=== PATIENT | male | born 1975 | race American Indian/Alaskan Native ===

== ENCOUNTER 2020-06-01 09:47 | Outpatient (REF) | payer OTHER, SELFPAY ==
[2020-06-01 10:40] LABS: MANUAL DIFF FLAG NO
[2020-06-01 10:56] LABS: Basophils Percent Auto 0.6 % (0-2); Eosinophils Absolute Auto 0.2 X10*3/uL (0.0-0.4); Eosinophils Percent Auto 3.8 % (0-4); Imm Gran Abs Auto 0.01 X10*3/uL (0.00-0.03); Imm Gran Pct Auto 0.2 % (0.0-0.4); Lymphocytes Absolute Auto 3.4 X10*3/uL (1.2-4.9); Lymphocytes Percent Auto 54.1 % (20-40); Mean Corpuscular HGB Conc 33.3 g/dl (31.0-36.0); Mean Corpuscular Hemoglobin 30.3 pg (27.0-33.0); Mean Corpuscular Volume 90.9 fL (80-98); Mean Platelet Volume 10.4 fL (9.4-12.4); Monocytes Absolute Auto 0.5 X10*3/uL (0.1-1.2); Monocytes Percent Auto 7.4 % (2-11); Neutrophils Absolute Auto 2.2 X10*3/uL (2.0-8.3); Neutrophils Percent Auto 33.9 % (45-73); Platelet Count 287 X10*3/uL (160-400); Red Blood Count 4.95 X10*6/uL (4.60-5.80); Red Cell Distribution Width 14.6 % (11.0-16.0); White Blood Count 6.4 X10*3/uL (4.8-10.8)
[2020-06-01 11:16] LABS: Alanine Aminotransferase 26 U/L (0-40); Albumin Level 4.5 g/dL (3.5-5.0); Alkaline Phosphatase 88 U/L (39-117); Anion Gap 12 (12-20); Aspartate Amino Transferase 26 U/L (5-37); Bilirubin Total 0.5 mg/dL (0.0-1.0); Blood Urea Nitrogen 17 mg/dL (9-16); Calcium 9.5 mg/dL (8.4-10.2); Carbon Dioxide 28 mmol/L (22-29); Chloride 105 mmol/L (96-108); Cholesterol 267 mg/dL; Estimated Glomerular Filt Rate > 60; Glucose Fasting 97 mg/dL (60-99); HDL Cholesterol 42 mg/dL; LDL Cholesterol Calculated 200 mg/dl; Potassium 4.9 mmol/l (3.3-5.1); Sodium 140 mmol/L (135-145); Total Protein 7.5 g/dL (6.5-8.0); Triglycerides 126 mg/dL
[2020-06-01 11:24] LABS: Prostate Specific Antigen 0.31 ng/mL (<0.05-4.0); Vitamin D 25-OH Total 11.5 ng/mL (>30)
== END 2020-06-01 09:48 | disposition home or self-care (01) ==
LOC: HO.LAB 09:47
PROVIDERS: PCP Internal Medicine Medical Oncology; Visit Provider Internal Medicine Medical Oncology
DX: E66.3 Overweight (principal); K40.90 Unilateral inguinal hernia, without obstruction or gangrene, not specified as recurrent
CPT/HCPCS: 36415; 80053; 80061; 82306; 84153; 85025

== ENCOUNTER → 2021-10-16 09:21 | Outpatient (BNVA) | payer OTHER, SELFPAY | PROVIDERS: PCP Internal Medicine Medical Oncology; Visit Provider Physician Assistant Medical | DX: S30.0XXA Contusion of lower back and pelvis, initial encounter (principal); V89.9XXA Person injured in unspecified vehicle accident, initial encounter | CPT/HCPCS: 99202 ==

== ENCOUNTER → 2021-11-05 11:19 | Outpatient (BNVA) | payer OTHER, SELFPAY | PROVIDERS: PCP Internal Medicine Medical Oncology; Visit Provider Physician Assistant | DX: S80.02XA Contusion of left knee, initial encounter (principal); W01.198A Fall on same level from slipping, tripping and stumbling with subsequent striking against other object, initial encounter | CPT/HCPCS: 73564; 99203 ==

== ENCOUNTER → 2021-11-10 13:23 | Outpatient (BNVA) | payer OTHER, SELFPAY | PROVIDERS: PCP Internal Medicine Medical Oncology; Visit Provider Physician Assistant Medical | DX: S80.02XA Contusion of left knee, initial encounter (principal); W22.8XXA Striking against or struck by other objects, initial encounter | CPT/HCPCS: 99213 ==

== ENCOUNTER → 2021-11-18 09:10 | Outpatient (BNVA) | payer OTHER, SELFPAY | PROVIDERS: PCP Internal Medicine Medical Oncology; Visit Provider Physician Assistant Medical | DX: S80.02XA Contusion of left knee, initial encounter (principal); W22.8XXA Striking against or struck by other objects, initial encounter | CPT/HCPCS: 99213 ==

== ENCOUNTER 2024-01-04 12:49 | Observation (INO) | payer BC, SELFPAY ==
--- NOTE | 2024-01-04 13:31 | ECG_ITS ---
Test Reason : CHEST PAIN Blood Pressure : / mmHG Vent. Rate : 044 BPM Atrial Rate : 044 BPM P-R Int : 148 ms QRS Dur : 084 ms QT Int : 428 ms P-R-T Axes : 039 023 -09 degrees QTc Int : 365 ms Marked sinus bradycardia Abnormal ECG No previous ECGs available Referred By: Generic ED Physician Electronically Signed By:Jaspal Sosa
[2024-01-04 13:38] VITALS: BP 141/60; PULSE 42; RESP 18; TEMP 36.4; O2SAT 98; BMI 30.3
--- NOTE | 2024-01-04 13:39 | ED_ITS ---
HPI - General Adult General Chief complaint: General Medical Stated complaint: Low heart rate seen PCP wednesday Time Seen by Provider: 01/04/24 20:07 Source: patient Mode of arrival: ambulatory Limitations: no limitations History of Present Illness HPI narrative: Patient comes to the emergency room complaining of low heart rate. According to the patient, yesterday he went to see his primary care physician for his annual physical. It was noted that his heart rate was in the 40s. Patient states that EKG was done and it showed sinus bradycardia. According to the patient, his primary care physician wants to refer him to Cardiology, but the next appointment will be available in months, therefore patient was recommended to come to the emergency room. Patient states that he has no chest pain or shortness of breath. Patient states that usually he has not dizzy. However, for the last couple of days when patient wakes up in the middle of the night to go to the bathroom, when he starts walking towards the bathroom he was feeling lightheaded, so far 2 days in a row this has happened. Patient states that after using the bathroom and goes back to bed, he feels completely back to baseline. At this time, patient is asymptomatic. Patient states that he has not much of an appetite, has not worked out in over 7 years. Patient states that his work is not significantly physical either. Patient states that throughout the day, patient has no symptoms at all even with exertion. Related Data Allergies Allergy/AdvReac Type Severity Reaction Status Date / Time No Known Allergies Allergy Verified 01/04/24 13:42 Review of Systems 2 Review of Systems: Constitutional : No Weight loss, No Fever, No Chills, No Night Sweats, No Fatigue, No Malaise ENT/Mouth : No Hearing loss, No Ear Pain, No Nasal Congestion, No Sinus Pain, No Hoarseness, No sore throat, No Rhinorrhea, No Swallowing Difficulty Eyes: No Eye Pain, No Swelling, No Redness, No Foreign Body, No Discharge, No Vision Changes Cardiovascular : No Chest Pain, No SOB, No Dyspnea on Exertion, No Orthopnea, No Edema, No Palpitations, complaining of 2 days of lightheadedness which resolved Respiratory : No Cough, No Sputum, No Wheezing, No Smoke Exposure, No Dyspnea Gastrointestinal : No Nausea, No Vomiting, No Diarrhea, No Constipation, No abdominal Pain, No Hematochezia, No Melena Genitourinary : no irregular bleeding, No Dysuria, No Urinary Frequency, No Hematuria, No Urinary Incontinence, No Urgency, No Flank Pain, No Urinary Flow Changes, No Hesitancy Musculoskeletal : No joint pain, No Myalgias, No Joint Swelling Skin : No Skin Lesions, No rash Neuro : No Weakness, No Numbness, No Paresthesias, No Loss of Consciousness, No Dizziness, No Headache Psych : No Anxiety/Panic, No Depression, No SI/HI/AH/VH, No Social Issues, Heme/Lymph: No Bruising, No Bleeding,No Lymphadenopathy Endocrine : No Polyuria, No Polydipsia, No Temperature Intolerance [facility] Social History Social History Alcohol intake: current Alcohol intake frequency: holidays/special occasions only Smoked in Last 30 Days: No Use of substances other than those prescribed or required for medical reasons: Yes Substance Use Type: Marijuana Substance Use Frequency: Occasionally Advance Directives: No Advance Directives Information Provided: No Do you have a plan to hurt others: No Plan Physical Exam ED Vital Signs: Vital Signs - 24 hr 01/04/24 13:38 01/04/24 19:44 01/04/24 20:21 Temperature 97.6 F 97.7 F Pulse Rate 42 L 35 L 43 L Respiratory Rate 18 16 Blood Pressure 141/60 H 139/73 128/77 Pulse Oximetry 98 99 Oxygen Delivery Method Room Air Room Air 01/04/24 20:22 01/04/24 20:23 Temperature Pulse Rate 39 L 40 L Respiratory Rate Blood Pressure 138/85 145/81 H Pulse Oximetry Oxygen Delivery Method BMI result Body Mass Index 30.3 Const Other: Appearance: Alert. Oriented X3. No acute distress. Eyes: Pupils equal, round and reactive to light. ENT: Pharynx normal. Neck: Normal inspection. Neck supple. No lymph nodes noted. No crepitus CVS: Bradycardic heart rate in the low 40s, occasionally down to 35. Pulses normal. Normal S1 and S2 Respiratory: No respiratory distress. Breath sounds normal. No Wheezing. No rales Abdomen: Soft and nontender. No rigidity. No distention. Skin: Skin warm and dry. Normal skin color. Normal skin turgor. Extremities: No lower extremity edema. No Lacerations. No Rash Neuro: Oriented X 3. No motor deficit. No sensory deficit. Moving all extremities. No slurred speech. CN 2 through 12 grossly intact Psych: calm, cooperative, normal affect Course Course Course Narrative: This is a Rapid Medical Examination (RME) performed by Roberto Luke PA-C in triage. Full HPI, ROS, assessment and treatment plan per primary provider in the Main ED. 48 yo male presenting for evaluation of low heart rate, which was first noted at recent annual physical appointment. Endorses associated dizziness and lightheadedness upon waking up in the morning, but not throughout the day. This has happened 2x for the past 2 days. No ongoing symptoms. Denies N/V/D, chest pain, SOB, or diaphoresis. Plan: EKG, labs Medical Decision Making Medical Decision Making [facility] Narrative: -my interpretation of EKG: Sinus bradycardia, heart rate 44, no ST segment depression or elevation, nonspecific T-wave inversion in lead 3, QTC 365 -my interpretation of labs, hematology, chemistry, troponin and TSH normal. -orthostatic blood pressure vitals normal -heart rate increased from the low 40s to the mid 50s walking. Blood pressure in the 140s. Patient denied dizziness, just mild shortness of breath. -I discussed the patient with Dr. Sosa, we will admit the patient, patient agreeable with plan. -I discussed the patient with Dr. Gillespie, patient being admitted by the medicine team Differential Diagnosis Differential Diagnoses: The differential diagnosis associated with the presentation includes (Heart block, sinus bradycardia) Admission/Observation Consideration of admission/observation: Escalation of care including admission/observation considered (Given patient's vitals, admission/observation was considered.) Consult Healthcare Provider Management of the patient was discussed with: Hospitalist and Medicaid Nurse Lab Data [facility] Lab Attestation statement: I reviewed the patient's lab results. 01/04/24 13:55 01/04/24 13:55 Labs: Lab Results 01/04/24 Range/Units 13:55 WBC 5.9 (4.8-10.8) X10*3/uL RBC 4.69 (4.60-5.80) X10*6/uL Hgb 14.1 (14.0-18.0) g/dl Hct 41.4 L (42.0-52.0) % MCV 88.3 (80.0-98.0) fL MCH 30.1 (27.0-33.0) pg MCHC 34.1 (31.0-36.0) g/dl RDW 14.3 (11.0-16.0) % Plt Count 291 (160-400) X10*3/uL MPV 9.5 (9.4-12.4) fL Immature Gran % (Auto) 0.3 (0.0-0.4) % Neut % (Auto) 35.3 L (45-73) % Lymph % (Auto) 53.3 H (20-40) % [place] % (Auto) 6.6 (2-11) % Eos % (Auto) 3.7 (0-4) % Baso % (Auto) 0.8 (0-2) % Lymph # (Auto) 3.1 (1.2-4.9) X10*3/uL [place] # (Auto) 0.4 (0.1-1.2) X10*3/uL Eos # (Auto) 0.2 (0.0-0.4) X10*3/uL Baso # (Auto) 0.1 (0.0-0.2) X10*3/uL Abs Immat Gran (auto) 0.02 (0.00-0.03) X10*3/uL Absolute Neuts (auto) 2.1 (2.0-8.3) x10*3/uL Absolute Nucleated RBC 0.000 (0.0-0.012) X10*3/uL Nucleated RBC % (auto) 0.0 (0.0-0.2) /100WBC Sodium 142 (135-145) mmol/L Potassium 4.0 (3.3-5.1) mmol/L Chloride 110 H (96-108) mmol/L Carbon Dioxide 22 (22-29) mmol/L Anion Gap 14 (12-20) BUN 21 H (9-16) mg/dL Creatinine 1.07 (0.5-1.4) mg/dL Estim Creat Clear Calc 87.3 Estimated GFR > 60 Random Glucose 105 (60-115) mg/dL Calcium 9.6 (8.4-10.2) mg/dL Magnesium 2.1 (1.6-2.6) mg/dL Total Bilirubin 0.2 (0.0-1.0) mg/dL Direct Bilirubin < 0.2 (0.0-0.5) mg/dL AST 28 (5-37) U/L ALT 37 (0-40) U/L Alkaline Phosphatase 82 (39-117) U/L Troponin I High Sens 5.3 (<3.5-35.0) ng/L Total Protein 7.4 (6.5-8.0) g/dL Albumin 4.1 (3.5-5.0) g/dL TSH 2.10 (0.32-4.0) uIU/mL Independent Interpretation I performed an independent interpretation of an: EKG Critical Care Time Critical Care Time Critical Care Time: Yes Total Critical Care Time: 60 Attestation: I have personally provided critical care time. Time includes review of lab data, radiology results, discussion with consultants, and monitoring for potential decompensation. Intervention performed as documented. Discharge Plan Discharge Clinical Impression: Bradycardia Patient Disposition: Admitted As Inpatient Print Language: Senegalese
[2024-01-04 13:58] LABS: MANUAL DIFF FLAG NO
[2024-01-04 14:07] LABS: Basophils Absolute Auto 0.1 X10*3/uL (0.0-0.2); Basophils Percent Auto 0.8 % (0-2); Eosinophils Absolute Auto 0.2 X10*3/uL (0.0-0.4); Eosinophils Percent Auto 3.7 % (0-4); Hematocrit 41.4 % (42.0-52.0); Hemoglobin 14.1 g/dl (14.0-18.0); Imm Gran Abs Auto 0.02 X10*3/uL (0.00-0.03); Imm Gran Pct Auto 0.3 % (0.0-0.4); Lymphocytes Absolute Auto 3.1 X10*3/uL (1.2-4.9); Lymphocytes Percent Auto 53.3 % (20-40); Mean Corpuscular HGB Conc 34.1 g/dl (31.0-36.0); Mean Corpuscular Hemoglobin 30.1 pg (27.0-33.0); Mean Corpuscular Volume 88.3 fL (80.0-98.0); Mean Platelet Volume 9.5 fL (9.4-12.4); Monocytes Absolute Auto 0.4 X10*3/uL (0.1-1.2); Monocytes Percent Auto 6.6 % (2-11); Neutrophils Absolute Auto 2.1 x10*3/uL (2.0-8.3); Neutrophils Percent Auto 35.3 % (45-73); Platelet Count 291 X10*3/uL (160-400); Red Blood Count 4.69 X10*6/uL (4.60-5.80); Red Cell Distribution Width 14.3 % (11.0-16.0); White Blood Count 5.9 X10*3/uL (4.8-10.8)
[2024-01-04 14:15] LABS: Alanine Aminotransferase 37 U/L (0-40); Albumin Level 4.1 g/dL (3.5-5.0); Alkaline Phosphatase 82 U/L (39-117); Anion Gap 14 (12-20); Aspartate Amino Transferase 28 U/L (5-37); Bilirubin Direct < 0.2 mg/dL (0.0-0.5); Bilirubin Total 0.2 mg/dL (0.0-1.0); Blood Urea Nitrogen 21 mg/dL (9-16); Calcium 9.6 mg/dL (8.4-10.2); Carbon Dioxide 22 mmol/L (22-29); Chloride 110 mmol/L (96-108); Creatinine Clr Calc Pharmacy 87.3; Estimated Glomerular Filt Rate > 60; Glucose Random 105 mg/dL (60-115); Magnesium 2.1 mg/dL (1.6-2.6); Sodium 142 mmol/L (135-145); Total Protein 7.4 g/dL (6.5-8.0)
[2024-01-04 14:22] LABS: Troponin-I High Sensitivity 5.3 ng/L (<3.5-35.0)
[2024-01-04 19:44] VITALS: BP 139/73; PULSE 35; RESP 16; TEMP 36.5; O2SAT 99
[2024-01-04 20:21] VITALS: BP 128/77; PULSE 43
[2024-01-04 20:22] VITALS: BP 138/85; PULSE 39
[2024-01-04 20:23] VITALS: BP 145/81; PULSE 40
--- NOTE | 2024-01-04 20:30 | MHC.EDTECH ---
ambulating pulse ox trial preformed with O2 sats remaining at 99-100% with heart rate from 54-57 [address] Wilma JONES and [address]. Mcgrath aware
[2024-01-04 20:41] VITALS: BP 119/51; PULSE 38; RESP 14; TEMP 36.4; O2SAT 97; O2SAT 99
--- NOTE | 2024-01-04 21:33 | P.HPHOSP_ITS ---
History of Present Illness Date of Service: 01/04/24 Chief Complaint: Bradycardia This is a 48-year-old male with no pertinent past medical history and not on prescription medications who presents to the emergency department for evaluation of dizziness. Patient states he went to his primary care doctor for a routine physical examination, 5 days prior to presentation. He was found to have low heart rate, EKG was performed and he was found to be in sinus bradycardia. Patient was asymptomatic until his PCP visit. On the day of presentation, he states that he had an episode of dizziness when he got up early in the morning to walk to the restroom. This has never happened before. He has no known past medical history and is not on prescription medications. No fever, chills, chest discomfort, palpitations, shortness of breath, abdominal pain, changes in urinary or bowel habits. In the emergency department, patient was found to be in sinus bradycardia. Cardiology was consulted who requested admission. Review of Systems 2 Constitutional: Constitutional: Reports no additional constitutional complaints ENT: Reports dizziness Cardiovascular: Cardiovascular: Reports no additional cardiovascular complaints Respiratory: Respiratory: Reports no additional respiratory complaints Gastrointestinal: Gastrointestinal: Reports no additional gastrointestinal complaints Genitourinary: Genitourinary: Reports no additional male genitourinary complaints Neurologic: Reports dizziness PMFSH Pertinent family history: No family history of early CAD Social History Alcohol intake: current Alcohol intake frequency: holidays/special occasions only Smoked in Last 30 Days: No Use of substances other than those prescribed or required for medical reasons: Yes Substance Use Type: Marijuana Substance Use Frequency: Occasionally Advance Directives: No Advance Directives Information Provided: No Do you have a plan to hurt others: No Plan Meds Allergies Allergy/AdvReac Type Severity Reaction Status Date / Time No Known Allergies Allergy Verified 01/04/24 13:42 Home Medications ?Medication ?Instructions ?Recorded ?Confirmed ?Last Taken ?Type No Known Home Meds 01/04/24 01/04/24 Unknown History Physical Exam 2 Vital Signs and Narrative: Vital Signs: Last Vital Signs Temp 97.6 F 01/04/24 20:41 Pulse 38 L 01/04/24 20:41 Resp 14 01/04/24 20:41 BP 119/51 L 01/04/24 20:41 Pulse Ox 99 01/04/24 20:41 O2 Del Method Room Air 01/04/24 20:41 BMI result Body Mass Index 30.3 Middle-aged male lying in bed in no distress Neck supple, no JVD Regular slow rate and rhythm, S1-S2 heard Regular breath sounds bilaterally, no wheezing or crackles appreciated Abdomen soft nontender, no guarding, no rigidity Patient is awake, alert and oriented to self, place, time and person ; no focal motor deficit Psych: Normal mood No pedal edema Results Labs 01/04/24 13:55 01/04/24 13:55 Labs: Laboratory Results - last 24 hr 01/04/24 13:55 MCV 88.3 MCH 30.1 MCHC 34.1 RDW 14.3 Plt Count 291 MPV 9.5 Immature Gran % (Auto) 0.3 Neut % (Auto) 35.3 L Lymph % (Auto) 53.3 H [place] % (Auto) 6.6 Eos % (Auto) 3.7 Baso % (Auto) 0.8 Lymph # (Auto) 3.1 [place] # (Auto) 0.4 Eos # (Auto) 0.2 Baso # (Auto) 0.1 Abs Immat Gran (auto) 0.02 Absolute Neuts (auto) 2.1 Absolute Nucleated RBC 0.000 Nucleated RBC % (auto) 0.0 Anion Gap 14 Estim Creat Clear Calc 87.3 Estimated GFR > 60 Random Glucose 105 Calcium 9.6 Magnesium 2.1 Total Bilirubin 0.2 Direct Bilirubin < 0.2 AST 28 ALT 37 Alkaline Phosphatase 82 Troponin I High Sens 5.3 Total Protein 7.4 Albumin 4.1 TSH 2.10 Assessment and Plan (1) Bradycardia: Status: Acute Plan This is a 48-year-old male with no pertinent past medical history and not on prescription medications who presents to the emergency department for evaluation of dizziness. #. Symptomatic bradycardia: Will admit patient for observation with cardiac monitoring. Obtaining TSH. Cardiology was consulted from the ER, appreciate assistance DVT prophylaxis: Lovenox Full code Quality Stroke Does the patient have a stroke diagnosis?: No VTE Prior VTE?: No VTE Risk Level:: Medical - moderate - high VTE Device Contraindication: Treatment Not Indicated VTE Drug Contraindication: N/A - Med Ordered
--- NOTE | 2024-01-04 21:44 | PHA.MEDREC ---
Pharmacy Consult ? Medication Reconciliation Pharmacy has completed the medication reconciliation. Patient reports no medications OTC or prescripition. Tabatha Ledesma, KimberlyD
[2024-01-04] MEDS: Enoxaparin Sodium 40 MG/0.4 ML SYRINGE SUBCUT (23:01)
[2024-01-04] MEDS: 0.9 % Sodium Chloride Flush 3 ML SYRINGE IVFLUSH (23:10)
[2024-01-05] VITALS (7 sets, daily range): BP systolic 122–141; BP diastolic 60–80; PULSE 37–53; RESP 10–18; TEMP 36.2–36.9; O2SAT 97–99
--- NOTE | 2024-01-05 | CA_ITS ---
Acquisition Time: 2024-01-05 10:45:17 Total Exercise Time: 00:10:09 Test Indications: BRADYCARDIA Medications: SEE H Protocol: ROSI Max HR: 150 BPM 88% of Pred: 170 BPM Max BP: 206/090 mmHG Max Work Load: 11.8 METS Exercise stress test exercise 10 min9 sec of Rosi protocol achieving 88% MPHR, with mild to moderate, 5/10 chest tightnes mid chest / pressure, without arrhythmias, with hypertensive response of max SBP 206 and max DBP 100, with downsloping V5-V6, T wave inversion V4. Chest pain resolved compeltely at 5 min recovery. Test reviewed with Dr. Sosa. Referred By: Rebekah Kessler Overread By: Rebekah Kessler
[2024-01-05 05:49] LABS: Basophils Absolute Auto 0.1 X10*3/uL (0.0-0.2); Basophils Percent Auto 0.9 % (0-2); Eosinophils Absolute Auto 0.3 X10*3/uL (0.0-0.4); Eosinophils Percent Auto 4.8 % (0-4); Hematocrit 43.6 % (42.0-52.0); Hemoglobin 14.4 g/dl (14.0-18.0); Imm Gran Abs Auto 0.01 X10*3/uL (0.00-0.03); Imm Gran Pct Auto 0.2 % (0.0-0.4); Lymphocytes Absolute Auto 3.5 X10*3/uL (1.2-4.9); Lymphocytes Percent Auto 61.9 % (20-40); MANUAL DIFF FLAG SCAN; Mean Corpuscular Hemoglobin 29.6 pg (27.0-33.0); Mean Corpuscular Volume 89.5 fL (80.0-98.0); Monocytes Absolute Auto 0.4 X10*3/uL (0.1-1.2); Monocytes Percent Auto 7.3 % (2-11); Neutrophils Absolute Auto 1.4 x10*3/uL (2.0-8.3); Neutrophils Percent Auto 24.9 % (45-73); Platelet Count 280 X10*3/uL (160-400); Red Blood Count 4.87 X10*6/uL (4.60-5.80); Red Cell Distribution Width 14.2 % (11.0-16.0); SCAN SMEAR FLAG 1; White Blood Count 5.6 X10*3/uL (4.8-10.8)
[2024-01-05 06:11] LABS: SLIDE REVIEW VERIFIED
[2024-01-05 06:17] LABS: Anion Gap 13 (12-20); Blood Urea Nitrogen 16 mg/dL (9-16); Calcium 8.8 mg/dL (8.4-10.2); Carbon Dioxide 22 mmol/L (22-29); Chloride 110 mmol/L (96-108); Creatinine Clr Calc Pharmacy 100.5; Estimated Glomerular Filt Rate > 60; Glucose Random 91 mg/dL (60-115); Potassium 3.8 mmol/L (3.3-5.1); Sodium 141 mmol/L (135-145)
[2024-01-05 06:24] LABS: Thyroid Stimulating Hormone 5.21 uIU/mL (0.32-4.0)
--- NOTE | 2024-01-05 07:58 | PC.NURSE ---
PT A/O X 4 NO SOB/BRENT NOTED SPEAKS IN FULL SENTENCES. PT DENIES DIZZINESS/LIGHTHEADEDNESS. DENIES ANY PAIN/DISC. PT AWARE OF PLAN OF CARE. WILL CONTINUE TO MONITOR.
--- NOTE | 2024-01-05 09:05 | PC.NURSE ---
PT SEEN BY BLOCK CAPTAIN. PT AWARE OF PLAN OF CARE. HR 42, PT IS ASYMPTOMATIC. WILL CONTINUE TO MONITOR.
[2024-01-05 10:12] LABS: Free T4 (Free Thyroxine) 0.96 ng/dL (0.71-1.85)
--- NOTE | 2024-01-05 10:30 | PC.NURSE ---
PT TO IS HAVING HIS STRESS TEST DONE AT THIS TIME.
--- NOTE | 2024-01-05 10:56 | PM.CNCAR ---
History of Present Illness History of Present Illness Date of Service: 01/05/24 Requesting physician: Chhaya Mcgrath Chief complaint: Bradycardia Narrative: Pleasant 48 year gentleman who is presenting for sinus bradycardia. He said he went to his primary care physician recently where sinus bradycardia was noticed any was referred as outpatient to see cardiology. He said he was getting some dizziness at nighttime when he got out of bed which was a short episode of lightheadedness. He did not pass out at any stage and has never had syncope in the past. He said due to these symptoms he decided to come to the ER. In the ER was noticed to be bradycardic and was admitted for further assessment. He is denying any chest discomfort but he has been noticing some shortness of breath specially when he goes upstairs. He does not take any prescription or [id number] medications. He has strong family history of coronary artery disease. COUNTS INCLUDE 234 BEDS AT THE [facility] Social History Social History Alcohol intake: current Alcohol intake frequency: holidays/special occasions only Patient Tobacco Use Status: Never used Tobacco Smoked in Last 30 Days: No Use of substances other than those prescribed or required for medical reasons: Yes Substance Use Type: Marijuana Substance Use Frequency: Occasionally Advance Directives: No Advance Directives Information Provided: No Do you have a plan to hurt others: No Plan Nutrition Risks: No Nutritional Risk Meds Allergies Allergy/AdvReac Type Severity Reaction Status Date / Time No Known Allergies Allergy Verified 01/04/24 13:42 Active Medications: Current Medications Acetaminophen (Acetaminophen 325 Mg Tablet) 650 mg PO Q6H PRN PRN Reason: Pain, Mild (Pain Scale 1-3) Enoxaparin Sodium (Enoxaparin Sodium 40 Mg/0.4 Ml Syringe) 40 mg SUBCUT Q24H [facility] Last Admin: 01/04/24 23:01 Dose: 40 mg Melatonin (Melatonin 3 Mg Tablet) 6 mg PO BEDTIME PRN PRN Reason: Insomnia Ondansetron HCl (Ondansetron Hcl 4 Mg/2 Ml Vial) 4 mg IVPUSH Q8H PRN PRN Reason: Nausea and Vomiting Sodium Chloride (0.9 % Sodium Chloride Flush 3 Ml Syringe) 3 ml IVFLUSH QSHIFT [facility] Last Admin: 01/05/24 07:40 Dose: Not Given Home Medications ?Medication ?Instructions ?Recorded ?Confirmed ?Last Taken ?Type No Known Home Meds 01/04/24 01/04/24 Unknown History Physical Exam Vital Signs: Vital Signs: Last Vital Signs Temp 97.7 F 01/05/24 07:37 Pulse 48 L 01/05/24 09:49 Resp 10 L 01/05/24 09:49 BP 122/74 01/05/24 09:49 Pulse Ox 97 01/05/24 09:49 O2 Del Method Room Air 01/05/24 09:49 BMI result Body Mass Index 30.3 GENERAL APPEARANCE: in no acute distress, pleasant. NECK: no carotid bruit, no jugular venous distention. SKIN: no suspicious lesions, warm and dry. HEART: no murmurs, regular rate and rhythm. Bradycardic. LUNGS: clear to auscultation bilaterally. ABDOMEN: soft, nontender. EXTREMITIES: no edema. PERIPHERAL PULSES: equal. NEUROLOGIC: No gross deficits, AAO X 3 Objective Labs and Meds 01/05/24 04:09 01/05/24 04:09 Lab results: Laboratory Results - last 24 hr 01/04/24 01/05/24 13:55 04:09 WBC 5.9 5.6 RBC 4.69 4.87 Hgb 14.1 14.4 Hct 41.4 L 43.6 MCV 88.3 89.5 MCH 30.1 29.6 MCHC 34.1 33.0 RDW 14.3 14.2 Plt Count 291 280 MPV 9.5 10.0 Immature Gran % (Auto) 0.3 0.2 Neut % (Auto) 35.3 L 24.9 L Lymph % (Auto) 53.3 H 61.9 H [place] % (Auto) 6.6 7.3 Eos % (Auto) 3.7 4.8 H Baso % (Auto) 0.8 0.9 Lymph # (Auto) 3.1 3.5 [place] # (Auto) 0.4 0.4 Eos # (Auto) 0.2 0.3 Baso # (Auto) 0.1 0.1 Abs Immat Gran (auto) 0.02 0.01 Absolute Neuts (auto) 2.1 1.4 L Absolute Nucleated RBC 0.000 0.000 Nucleated RBC % (auto) 0.0 0.0 Smear Tech's Comments VERIFIED Sodium 142 141 Potassium 4.0 3.8 Chloride 110 H 110 H Carbon Dioxide 22 22 Anion Gap 14 13 BUN 21 H 16 Creatinine 1.07 0.93 Estim Creat Clear Calc 87.3 100.5 Estimated GFR > 60 > 60 Random Glucose 105 91 Calcium 9.6 8.8 D Magnesium 2.1 Total Bilirubin 0.2 Direct Bilirubin < 0.2 AST 28 ALT 37 Alkaline Phosphatase 82 Troponin I High Sens 5.3 Total Protein 7.4 Albumin 4.1 TSH 2.10 5.21 H Free T4 0.96 Assessment and Plan (1) Bradycardia: Status: Acute (2) Dyspnea on exertion: Status: Acute Plan Pleasant 48-year-old gentleman who came to the emergency department with dizziness and sinus bradycardia. His heart rate is in 40s and with minimal activity in bed life leg raising his heart rate goes to 60s. EKGs not showing any advanced block. I have advised him to do an exercise tolerance test given the fact that he has dyspnea with activity. He also has family history of coronary disease. We will also assess for chronotropic incompetence during stress testing. I doubt that bradycardia is an issue as his heart rate goes up with minimal exercise. Thank you for allowing me to participate in the care of your patient. Please feel free to contact me if you have any questions. Procedures Date of Service Date of Service: 01/05/24
--- NOTE | 2024-01-05 11:19 | PC.NURSE ---
PT RETURNED FROM HIS STRESS TEST.
--- NOTE | 2024-01-05 13:02 | PM.DS ---
DS: Providers Provider Date of Service: 01/05/24 Date of admission: 01/04/24 21:31 Primary care physician: Jannie Isabel NP Consults: 01/04/24 21:31 Consult to Cardiology Routine Consulting Provider: [facility] Cardiovascular Services Reason for consultation: symptomatic bradycardia Has provider been notified: Yes DS: Diagnosis Discharge Diagnosis (1) Bradycardia: Status: Acute (2) Dyspnea on exertion: Status: Acute DS: Summary Hospital Course Hospital Course: from initial hpi: 48-year-old male with no pertinent past medical history and not on prescription medications who presents to the emergency department for evaluation of dizziness. Patient states he went to his primary care doctor for a routine physical examination, 5 days prior to presentation. He was found to have low heart rate, EKG was performed and he was found to be in sinus bradycardia. Patient was asymptomatic until his PCP visit. On the day of presentation, he states that he had an episode of dizziness when he got up early in the morning to walk to the restroom. This has never happened before. He has no known past medical history and is not on prescription medications. No fever, chills, chest discomfort, palpitations, shortness of breath, abdominal pain, changes in urinary or bowel habits. In the emergency department, patient was found to be in sinus bradycardia. Cardiology was consulted who requested admission. hospital course: Patient was observed for sinus bradycardia. He was seen by Cardiology and underwent exercise stress test. Heart rate responded appropriately to exertion, so unlikely symptoms due to sinus bradycardia. He was noted to have exertional hypertension. At rest blood pressure is in 130s, not started on medications at this point, however, should be followed up outpatient for blood pressure monitoring. Time Attestation Discharge Coordination Time (in mins): 35 Quality: Safe Use of Opioids Does Pt have an Active Cancer Diagnosis on the Problem List?: No Quality: Stroke Does the patient have a stroke diagnosis?: No Physical Exam Vital Signs: Vital Signs: Last Vital Signs Temp 98.5 F 01/05/24 12:19 Pulse 53 01/05/24 12:19 Resp 16 01/05/24 12:19 BP 131/80 01/05/24 12:19 Pulse Ox 98 01/05/24 12:19 O2 Del Method Room Air 01/05/24 12:19 BMI result Body Mass Index 30.3 General: AO X 3, no acute distress Resp: CTA bilateral, no accessory muscles used CVS: S1,S2,RRR GI: soft, non tender, non distended Neuro: motor grossly intact, alert Psych: appropriate affect, appropriate insight DS: Data Data Completed and Pending Labs on day of discharge: Laboratory Results - last 24 hr 01/04/24 01/05/24 13:55 04:09 WBC 5.9 5.6 RBC 4.69 4.87 Hgb 14.1 14.4 Hct 41.4 L 43.6 MCV 88.3 89.5 MCH 30.1 29.6 MCHC 34.1 33.0 RDW 14.3 14.2 Plt Count 291 280 MPV 9.5 10.0 Immature Gran % (Auto) 0.3 0.2 Neut % (Auto) 35.3 L 24.9 L Lymph % (Auto) 53.3 H 61.9 H [place] % (Auto) 6.6 7.3 Eos % (Auto) 3.7 4.8 H Baso % (Auto) 0.8 0.9 Lymph # (Auto) 3.1 3.5 [place] # (Auto) 0.4 0.4 Eos # (Auto) 0.2 0.3 Baso # (Auto) 0.1 0.1 Abs Immat Gran (auto) 0.02 0.01 Absolute Neuts (auto) 2.1 1.4 L Absolute Nucleated RBC 0.000 0.000 Nucleated RBC % (auto) 0.0 0.0 Smear Tech's Comments VERIFIED Sodium 142 141 Potassium 4.0 3.8 Chloride 110 H 110 H Carbon Dioxide 22 22 Anion Gap 14 13 BUN 21 H 16 Creatinine 1.07 0.93 Estim Creat Clear Calc 87.3 100.5 Estimated GFR > 60 > 60 Random Glucose 105 91 Calcium 9.6 8.8 D Magnesium 2.1 Total Bilirubin 0.2 Direct Bilirubin < 0.2 AST 28 ALT 37 Alkaline Phosphatase 82 Troponin I High Sens 5.3 Total Protein 7.4 Albumin 4.1 TSH 2.10 5.21 H Free T4 0.96 Discharge Plan Discharge Anticipated Discharge Date/Time: 01/05/24 13:00 Patient Disposition: Home, Self-Care Discharge Diagnosis: bradycardia Referrals: Jannie Isabel, [employer] [Primary Care Provider] - 1 Week Discharge Medications: No Action No Known Home Meds Discharge Orders: Discharge Order (Routine); Ordered 01/05/24 Ordered By: Zion Delgadillo Diet: Advance to usual diet Activity on Discharge: As tolerated Stand Alone Forms: Patient Portal Discharge page Print Language: Iraqi Care Plan Goals: manage exertional hypertension Health Concerns: elevated bp on exertion (cardiology not concerned about low heart rate) Plan of Treatment: monitor blood pressure as outpatient Assessment: see above
--- NOTE | 2024-01-05 13:28 | MHC.CM.PN ---
[place] 01/05/24, Pt is independent, has transport home, HCP discussed and he declined to do one here. DC plan is home, self care.
== END 2024-01-05 13:22 | disposition home or self-care (01) ==
LOC: HO.ED 20:54 → HO.EDOVER 21:36
PROVIDERS: Internal Medicine Cardiovascular Disease; Physician Assistant; Admitting Provider Student in an Organized Health Care Education/Training Program; Emergency Provider Emergency Medicine; PCP Nurse Practitioner Primary Care; Visit Provider Internal Medicine
DX: R00.1 Bradycardia, unspecified (principal); R06.09 Other forms of dyspnea; R07.9 Chest pain, unspecified; R06.00 Dyspnea, unspecified; R42 Dizziness and giddiness
CPT/HCPCS: 36415; 80048; 80076; 83735; 84439; 84443; 84484; 85025; 93005; 93017; 96372; 99222; 99285; J1650

== ENCOUNTER → 2024-01-04 13:31 | Outpatient (BNV) | payer BC, SELFPAY | PROVIDERS: PCP Nurse Practitioner Primary Care; Visit Provider Internal Medicine Cardiovascular Disease | DX: R07.9 Chest pain, unspecified (principal) | CPT/HCPCS: 93010 ==

== ENCOUNTER 2024-01-04 21:31 | Outpatient (BNV) | payer BC, SELFPAY | END 2024-01-05 10:45 | PROVIDERS: Admitting Provider Student in an Organized Health Care Education/Training Program; Emergency Provider Emergency Medicine; PCP Nurse Practitioner Primary Care; Visit Provider Nurse Practitioner | DX: R07.9 Chest pain, unspecified (principal) | CPT/HCPCS: 93016; 93018 ==

== ENCOUNTER → 2024-01-04 21:31 | Outpatient (BNV) | payer BC, SELFPAY | PROVIDERS: Admitting Provider Student in an Organized Health Care Education/Training Program; Emergency Provider Emergency Medicine; PCP Nurse Practitioner Primary Care; Visit Provider Student in an Organized Health Care Education/Training Program | DX: R00.1 Bradycardia, unspecified (principal); R06.09 Other forms of dyspnea; R42 Dizziness and giddiness | CPT/HCPCS: 99222; 99239 ==

== ENCOUNTER → 2024-01-04 21:31 | Outpatient (BNV) | payer BC, SELFPAY | PROVIDERS: Admitting Provider Student in an Organized Health Care Education/Training Program; Emergency Provider Emergency Medicine; PCP Nurse Practitioner Primary Care; Visit Provider Internal Medicine Cardiovascular Disease | DX: R00.1 Bradycardia, unspecified (principal); R06.09 Other forms of dyspnea; Z82.49 Family history of ischemic heart disease and other diseases of the circulatory system | CPT/HCPCS: 99252 ==

== ENCOUNTER 2024-02-07 14:36 | Outpatient (AMB) | payer BC, SELFPAY ==
--- NOTE | 2024-02-07 14:48 | A.OFFVIS_ITS ---
Vital Signs 02/07/24 14:49 Height 5 ft 7 in Weight 191 lb 5.78 oz BMI 30.0 BP 130/60 Blood Pressure Location Lt brachial Position Sitting Pulse 46 L Pulse Source Pulse Oximeter Intake Visit Reasons: f/up Email Marketing Assistant Required: No Accompanied by: Self / Same As Patient Allergies No Known Allergies Allergy (Verified 01/04/24 13:42) Medication List - Last Reconciled 02/07/24 by Jaspal Sosa MD No Known Home Meds HPI Comments Details: [age] year gentleman who is here for follow-up. He was seen 01/17/2024 when he presented with dizziness and sinus bradycardia. His heart rate was in 40s but with minimal activity heart rate would go up to 60s. Was also complaining of dyspnea on exertion and has history of coronary artery disease in his family. After discussion we decided to do an exercise stress test. He was able to exercise for 10 minutes 9 seconds and achieved 1.8 metabolic equivalents. Had a hypertensive response to exercise and maximum blood pressure was 206/90. He was subsequently discharged home and is back for follow-up. He is denying any symptoms follow-up. No chest pain or shortness of breath. No syncope. He has noticed his heart rate to be in 40s at home. ON LICENSE OF [facility] Social History Alcohol intake: current Alcohol intake frequency: holidays/special occasions only Patient Tobacco Use Status: Never used Tobacco Substance Use Type: Marijuana service: No Review of Systems Const Denies chills, Denies fatigue, Denies fever(s), Denies frequent falls, Denies weakness, Denies weight gain and Denies weight loss ENT Denies dizziness Card Denies chest pain, Denies leg edema, Denies lightheadedness, Denies palpitations, Denies dyspnea and Denies dyspnea on exertion Resp Denies cough, Denies dyspnea and Denies dyspnea on exertion GI Denies hematochezia Musc Denies abnormal gait, Denies muscle weakness, Denies numbness, Denies radiating pain into limb and Denies tingling Neuro Denies abnormal gait, Denies dizziness, Denies frequent falls, Denies numbness, Denies tingling and Denies weakness Endo Denies fatigue and Denies palpitations Physical Exam Vital Signs: Last Vital Signs Pulse 46 L 02/07/24 14:49 BP 130/60 02/07/24 14:49 BMI result Body Mass Index 30.0 GENERAL APPEARANCE: in no acute distress, pleasant. NECK: no carotid bruit, no jugular venous distention. SKIN: no suspicious lesions, warm and dry. HEART: no murmurs, regular rate and rhythm. Bradycardic. LUNGS: clear to auscultation bilaterally. ABDOMEN: soft, nontender. EXTREMITIES: no edema. PERIPHERAL PULSES: equal. NEUROLOGIC: No gross deficits, AAO X 3 Assessment & Plan Assessment & Plan (1) Bradycardia: Code(s): R00.1 - Bradycardia, unspecified Category: Medical Plan Oc gray was seen in the emergency department in December 2023 with sinus bradycardia. He was also complaining of some dyspnea on exertion. He underwent exercise stress test which was unremarkable. He has been doing well. He has heart rates in 40s mostly. Heart rate appropriately rises with activity and I have reassured him. He will monitor his blood pressure at home Advise a fasting lipid panel. He will follow-up with us as needed. Thank you for allowing me to participate in the care of your patient. Please feel free to contact me if you have any questions. Orders: Orders Lipid Panel Today Z00.00 - Encounter for general adult medical examination without abnormal findings Coding Level of Care Code Est Pt Level 4 (11957) Diagnoses Bradycardia R00.1
[2024-02-07 14:49] VITALS: BP 130/60; PULSE 46
== END 2024-02-07 16:15 | disposition home or self-care (01) ==
PROVIDERS: PCP Nurse Practitioner Primary Care; Visit Provider Internal Medicine Cardiovascular Disease
DX: R00.1 Bradycardia, unspecified (principal)
CPT/HCPCS: 99214

== ENCOUNTER → 2024-02-07 14:36 | Outpatient (BNVA) | payer BC, SELFPAY | PROVIDERS: PCP Nurse Practitioner Primary Care; Visit Provider Internal Medicine Cardiovascular Disease ==

== ENCOUNTER → 2024-06-05 12:01 | Outpatient (BNVA) | payer OTHER, SELFPAY | PROVIDERS: PCP Nurse Practitioner Primary Care; Visit Provider Physician Assistant Medical | DX: M77.12 Lateral epicondylitis, left elbow (principal) | CPT/HCPCS: 99202 ==

== ENCOUNTER → 2024-06-09 09:21 | Outpatient (BNVA) | payer OTHER, SELFPAY | PROVIDERS: PCP Nurse Practitioner Primary Care; Visit Provider Physician Assistant | DX: M77.12 Lateral epicondylitis, left elbow (principal) | CPT/HCPCS: 99213 ==

== ENCOUNTER 2024-10-26 10:40 | Outpatient (REF) | payer OTHER, SELFPAY ==
[2024-10-26 11:35] LABS: MANUAL DIFF FLAG NO
[2024-10-26 12:02] LABS: Basophils Absolute Auto 0.1 X10*3/uL (0.0-0.2); Basophils Percent Auto 0.8 % (0-2); Eosinophils Absolute Auto 0.2 X10*3/uL (0.0-0.4); Eosinophils Percent Auto 2.8 % (0-4); Hematocrit 45.5 % (42.0-52.0); Hemoglobin 15.1 g/dl (14.0-18.0); Imm Gran Abs Auto 0.01 X10*3/uL (0.00-0.03); Imm Gran Pct Auto 0.2 % (0.0-0.4); Lymphocytes Percent Auto 49.7 % (20-40); Mean Corpuscular HGB Conc 33.2 g/dl (31.0-36.0); Mean Corpuscular Hemoglobin 29.7 pg (27.0-33.0); Mean Corpuscular Volume 89.4 fL (80.0-98.0); Mean Platelet Volume 9.8 fL (9.4-12.4); Monocytes Absolute Auto 0.4 X10*3/uL (0.1-1.2); Monocytes Percent Auto 6.9 % (2-11); Neutrophils Absolute Auto 2.4 x10*3/uL (2.0-8.3); Neutrophils Percent Auto 39.6 % (45-73); Platelet Count 336 X10*3/uL (160-400); Red Blood Count 5.09 X10*6/uL (4.60-5.80); Red Cell Distribution Width 14.6 % (11.0-16.0); White Blood Count 6.1 X10*3/uL (4.8-10.8)
[2024-10-26 12:32] LABS: Estimated Average Glucose 123 mg/dL; Hemoglobin A1c % 5.9 % (<6.0)
--- OUTSIDE RECORDS SUMMARY | 2024-10-26 12:40 | XMS_ITS | Clinical Summary ---
Author Organization [employer] Address [address] [place] [address] 7 [place] [address] Care Team Providers Care Senior Clinical Data Analyst Name Role Phone Jannie Isabel Primary Care Provider [phone] Allergies No known active allergies Medications No known medications Active Problems Problem Noted Date Diagnosed Date Screening for malignant neoplasm of colon 2023 Overview (12/31/2023): Referred to GI 12/31/23 Healthcare maintenance 12/31/2023 Umbilical hernia with obstruction but no gangren e 06/16/2022 Overview (12/31/2023): Repaired at [facility] most recently 2013, 1st one was years before in [place] Encounters Date Type Department Care Team Description 10/26/2024 9:30 AM EST Office Visit [facility] MEDICINE [address] [place] [address] Jannie Isabel ANP 10/26/2024 Travel 10/20/2024 Telephone [facility] MEDICINE [address] [place] [address] Laina Schroeder MA chart prep 10/19/2024 Travel 10/13/2024 Patient Outreach [facility] MEDICINE [address] [place] [address] Jannie Isabel ANP Pre-visit Planning (Pre-visit planning - LVM ) from Last 3 Months Immunizations Name Administration Dates Next Due Tdap 10/26/2024,07/19/2014 Family History Medical History Relation Name Comments Diabetes Mother Heart failure Mother Relation Name Status Comments Mother Social History Tobacco Use Types Packs/Day Years Used Date Smoking Tobacco: Never Passive Smoke Exposure: Never Smokeless Tobacco: Never Tobacco Cessation:Counseling Given: Not Answered Alcohol Use Standard Drinks/Week Comments Yes 0 (1 standard drink = 0.6 oz pur e alcohol) social, rare Depression Answer Date Recorded Patient Health Questionnaire-9 Score 0 12/31/2023 Patient Health Questionnaire-9 Score 0 12/31/2023 Last PHQ-9: Questionnaire Data Not on file 0 12/31/2023 Housing Stability Answer Date Recorded What is your housing situation today? I have edvin alford 10/14/[address] you li ve. Do you have problems with any of the following? None of the above 10/14/2023 Food Insecurity Answer Date Recorded Within the past 12 months, y ou worried that your food would run out before you got money to buy more: Never True 10/14/2023 Within the past 12 months,th e food you bought just didn't last and you didn't have enough money to get more: Never True Transportation Answer Date Recorded In the past 12 months, has l ack of transportation kept you from medical appts, meetings, work or from getting things needed for daily living? No 10/14/2023 Utilities Answer Date Recorded In the past 12 months, has t he electric, gas, oil or water company threatened to shut off services in your home? No 10/14/2023 Depression Answer Date Recorded Patient Health Questionnaire-2 Score 0 12/31/2023 Sex and Gender Information Value Date Recorded Sex Assigned at Male 08/27/2023 9:26 AM EST Legal Sex Male 5:36 PM EDT Gender Identity Male 08/27/2023 9:26 AM EST Sexual Orientation Straight 08/27/2023 9: 26 AM EST Last Filed Vital Signs Vital Sign Reading Time Taken Comments Blood Pressure 129/73 10/26/2024 9:46 AM EST Pulse 46 10/26/2024 9:46 AM EST Temperature 36.6 ??C (97.8 ??F) 10/26/2024 9:46 AM ES T Respiratory Rate 14 10/26/2024 9:46 AM EST Oxygen Saturation 98% 10/26/2024 9:46 AM EST Inhaled Oxygen Concentration - - Weight 85.7 kg (189 lb) 10/26/2024 9:46 AM EST Height - - Body Mass Index - - Plan of Treatment Health Maintenance Due Date Last Done Comments CT Colonography 1973 Colonoscopy 1973 Colorectal Cancer Screening 1973 FIT DNA/Cologuard 1973 FIT 1973 FOBT 1973 HIV Screening 1973 Lipid Panel 1973 Sigmoidoscopy 1973 Family Planning (PISQ) 01/21/1988 Hepatitis C Screening 1991 Hepatitis B Vaccines (1 of 3 - 19+ 3-dose series) 01/21/1992 Pneumococcal Vaccine: 50+ Years (1 of 1 - PCV) 2023 Zoster Vaccines (1 of 2) 2023 COVID-19 Vaccine (4 - 2023-2 5 season) 2024 08/07/2021, 01/12/2021, 12/21/2020 Influenza Vaccine (#1) 2024 Depression Screening 12/30/2024 12/31/2023, 12/31/2023 SDOH Screening 12/30/2024 12/31/2023 Alcohol/Substance Use Screening 10/26/2025 10/26/2024 Tobacco Screening 10/26/2025 10/26/2024 DTaP/Tdap/Td Vaccines (3 - T d or Tdap) 10/26/2034 10/26/2024, 07/19/2014 RSV Patients and Patients Aged 60 years or older (1 - 1-dose 75+ series) 01/21/2048 HIB Vaccines Aged Out No longer eligi ble based on patient's age to complete this topic HPV Vaccines Aged Out No longer eligi ble based on patient's age to complete this topic Hepatitis A Vaccines Aged Out No long er eligible based on patient's age to complete this topic IPV Vaccines Aged Out No longer eligi ble based on patient's age to complete this topic Meningococcal Vaccine Aged Out No no sameer eligible based on patient's age to complete this topic RSV under 20 months Aged Out No longe r eligible based on patient's age to complete this topic Rotavirus Vaccines Aged Out No longer eligible based on patient's age to complete this topic Procedures Procedure Name Priority Date/Time Associated Diagnosis Comments CBC WITH AUTO DIFFERENTIAL Routine 10/26/2024 10:40 AM EST Healthcare maintenance HEMOGLOBIN A1C Routine 10/26/2024 10:40 AM EST Family history of diabetes mellitus from Last 3 Months Results * (ABNORMAL) CBC auto differential (10/26/2024 10:40 AM EST) White Blood Count 6.1 4.8 - 10.8 X10*3/uL [facility] Red Blood Count 5.09 4.60 - 5.80 X10*6/uL [facility] Hemoglobin 15.1 14.0 - 18.0 g/dl [facility] Hematocrit 45.5 42.0 - 52.0 % [facility] Mean Corpuscular Volume 89.4 80.0 - 98.0 fL [facility] Mean Corpuscular Hemoglobin 29.7 27.0 - 33.0 pg [facility] Mean Corpuscular HGB Conc 33.2 31.0 - 36.0 g/dl [facility] Red Cell Distribution Width 14.6 11.0 - 16.0 % [facility] Platelet Count 336 160 - 400 X10*3/uL [facility] Mean Platelet Volume 9.8 9.4 - 12.4 fL [facility] Neutrophils Percent Auto 39.6(L) 45 - 73 % [facility] Imm Gran Pct Auto 0.2 0.0 - 0.4 % [facility] Lymphocytes Percent Auto 49.7(H) 20 - 40 % [facility] Monocytes Percent Auto 6.9 2 - 11 % [facility] Eosinophils Percent Auto 2.8 0 - 4 % [facility] Basophils Percent Auto 0.8 0 - 2 % [facility] NRBC Pct Auto 0.0 0.0 - 0.2 /100WBC [facility] Neutrophils Absolute Auto 2.4 2.0 - 8.3 x10*3/uL [facility] Imm Gran Abs Auto 0.01 0.00 - 0.03 X10*3/uL [facility] Lymphocytes Absolute Auto 3.0 1.2 - 4.9 X10*3/uL [facility] Monocytes Absolute Auto 0.4 0.1 - 1.2 X10*3/uL [facility] Eosinophils Absolute Auto 0.2 0.0 - 0.4 X10*3/uL [facility] Basophils Absolute Auto 0.1 0.0 - 0.2 X10*3/uL [facility] NRBC Abs Auto 0.000 0.0 - 0.012 X10*3/uL [facility] Blood Venous blood specimen / Unknown 10/26/2024 10:40 AM EST 10/26/2024 11:31 AM EST Jannie Isabel ANP LAB BLOOD ORDERABLES Final Resul t Performing Organization Address [facility] de Phone Number [facility] [address] [place] [phone] * Hemoglobin A1c (10/26/2024 10:40 AM EST) Hemoglobin A1c 5.9 <6.0 % [facility] Comment:Hemoglobin A1C Refer ence Range Adults: 4.8 - 6.0 % Non diabetic: < 6.0 % Goal: < 7.0 %Additional Action Suggested: > 8.0 %Note: Hemoglobin A1c results are invalid for patients with abnormal amounts of HbF. Blood transfusions may impact the HbA1c concentration in the patient sample. Estimated Average Glucose 123 mg/dL [facility] Comment:eAG = Estimated ave rage glucose which is %A1C expressed asaverage glucose, using the formula of the M9L-KivhacuTalsygs Glucose study (ADAG), Diabetes Care, Vol.31,#8,Mar. 2007 Blood Venous blood specimen / Unknown 10/26/2024 10:40 AM EST 10/26/2024 12:06 PM EST Jannie Isabel ANP LAB BLOOD ORDERABLES Final Resul t Performing Organization Address [facility] de Phone Number [facility] [address] [place] [phone] from Last 3 Months Insurance [facility] HMO Care Teams Senior Clinical Data Analyst Relationship Specialty Start Date End Date Jannie Isabel ANP [address] [place] [phone] PCP - General Family Medicine 12/31/23
--- OUTSIDE RECORDS SUMMARY | 2024-10-26 12:40 | XMS_ITS | Encounter Summary ---
Author Organization [employer] Address [address] [facility] [address] [place] [address] Care Team Providers Care Dining Room Hostess Name Role Phone Jannie Isabel Primary Care Provider [phone] Reason for Visit * Reason Onset Date Comments chart prep 10/20/2024 Encounter Details Date Type Department Care Team (Late st Contact Info) Description 10/20/2024 Telephone [facility] MEDICINE [address] [place] [address] Laina Schroeder MA chart prep Social History Tobacco Use Types Packs/Day Years Used Date Smoking Tobacco: Never Passive Smoke Exposure: Never Smokeless Tobacco: Never Alcohol Use Standard Drinks/Week Comments Yes 0 [...] Orientation Straight 08/27/2023 9: 26 AM EST documented as of this encounter Miscellaneous Notes * Telephone Encounter - Laina Schroeder MA - 10/20/2024 1:43 PM EST Chart Prep Labs: done Images: not applicable Vaccines due: yes Referrals: cardio done/gastro unable to reach pt Screenings: none Overdue care gaps: Sbirt, PHQ-9 documented in this encounter Plan of Treatment Not on file documented as of this encounter Visit Diagnoses Not on filedocumented in this encounter Additional Health Concerns Assessment Noted Time PHQ-9 Depression Total Score: 0 12/31/19 1:50 PM EDT documented as of this encounter Care Teams Dining Room Hostess Relationship Specialty Start Date End Date Jannie Isabel ANP [address] [place] [address] PCP - General Family Medicine 12/31/23 documented as of this encounter
--- OUTSIDE RECORDS SUMMARY | 2024-10-26 12:40 | XMS_ITS | Encounter Summary ---
Author Organization [employer] Address [address] [facility] [address] [place] [address] Care Team Providers Care Acid Tank Cleaner Name Role Phone Jannie Isabel Primary Care Provider [phone] Encounter Details Date Type Department Care Team (Latest Contact Info) Description 10/26/2024 Travel Social History Tobacco Use Types Packs/Day Years [...] AM EST documented as of this encounter Plan of Treatment Not on file documented as of this encounter Visit Diagnoses Not on filedocumented in this encounter Additional Health Concerns Assessment Noted Time PHQ-9 Depression Total Score: 0 12/31/19 1:50 PM EDT documented as of this encounter Care Teams Acid Tank Cleaner Relationship Specialty Start Date End Date Jannie Isabel ANP [address] [place] [address] PCP - General Family Medicine 12/31/23 documented as of this encounter
--- OUTSIDE RECORDS SUMMARY | 2024-10-26 12:40 | XMS_ITS | Encounter Summary ---
Author Organization [employer] Address [address] [facility] [address] [place] [address] Care Team Providers Care Restaurant Host/Hostess Name Role Phone Jannie Isabel Primary Care Provider [phone] Reason for Visit * Reason Comments Annual Exam Encounter Details Date Type Department Care Team (Late st Contact Info) Description 10/26/2024 9:30 AM EST Office Visit [facility] MEDICINE [address] [place], [place] [phone] Jannie Isabel ANP [address] [place], [place] [phone] Social History Tobacco Use Types Packs/Day Years [...] AM EST documented as of this encounter Last Filed Vital Signs Vital Sign Reading [...] - - Body Mass Index - - documented in this encounter Plan of Treatment Not on file documented as of this encounter Visit Diagnoses Not on filedocumented in this encounter Additional Health Concerns Assessment Noted Time PHQ-9 Depression Total Score: 0 12/31/19 24 1:50 PM EDT documented as of this encounter Care Teams Restaurant Host/Hostess Relationship Specialty Start Date End Date Jannie Isabel ANP [address] [place] [phone] PCP - General Family Medicine 12/31/23 documented as of this encounter
--- OUTSIDE RECORDS SUMMARY | 2024-10-26 12:41 | XMS_ITS | Encounter Summary ---
Author Organization [employer] Address [address] [facility] 7t [place] [address] Care Team Providers Care Tariff Expert Name Role Phone Janine Isabel Primary Care Provider [phone] Reason for Visit * Reason Comments Pre-visit Planning Pre-visit planning - LVM Encounter Details Date Type Department Care Team (Late st Contact Info) Description 10/13/2024 Patient Outreach [facility] MEDICINE [address] [place] [address] Jannie Isabel ANP [address] [place] [address] Pre-visit Planning (Pre-visit planning - LVM ) Social History Tobacco Use Types Packs/Day Years [...] AM EST documented as of this encounter Progress Notes * Sarah Jo - 10/13/2024 10:24 AM EST ANCA Murphy placed outbound call to patient to complete pre-visit planning. No answer at this time. Patient name and were not confirmed. CC left voicemail requesting return call. Direct contact information provided. documented in this encounter Plan of Treatment Not on file documented as of this encounter Visit Diagnoses Not on filedocumented in this encounter Additional Health Concerns Assessment Noted Time PHQ-9 Depression Total Score: 0 12/31/19 24 1:50 PM EDT documented as of this encounter Care Teams Tariff Expert Relationship Specialty Start Date End Date Jannie Isabel ANP [address] [place] [phone] PCP - General Family Medicine 12/31/23 documented as of this encounter
--- OUTSIDE RECORDS SUMMARY | 2024-10-26 12:41 | XMS_ITS | Encounter Summary ---
Author Organization [employer] Address [address] [facility] 7t [place] [address] Care Team Providers Care Golf Club Manager Name Role Phone Jannie Isabel Primary Care Provider [phone] Encounter Details Date Type Department Care Team (Latest Contact Info) Description 10/19/2024 Travel Social History Tobacco Use Types Packs/Day [...] documented as of this encounter Care Teams Golf Club Manager Relationship Specialty Start Date End Date Jannie Isabel ANP [address] [place] [address] PCP - General Family Medicine 12/31/23 documented as of this encounter
[2024-10-26 12:42] LABS: Alanine Aminotransferase 41 U/L (0-40); Albumin Level 4.2 g/dL (3.5-5.0); Alkaline Phosphatase 82 U/L (39-117); Anion Gap 11 (12-20); Aspartate Amino Transferase 39 U/L (5-37); Bilirubin Total 0.5 mg/dL (0.0-1.0); Blood Urea Nitrogen 17 mg/dL (9-16); Calcium 9.2 mg/dL (8.4-10.2); Carbon Dioxide 23 mmol/L (22-29); Chloride 109 mmol/L (96-108); Cholesterol 278 mg/dL (<200); Estimated Glomerular Filt Rate > 60; Glucose Random 96 mg/dL (60-115); HDL Cholesterol 47 mg/dL (>40); LDL Cholesterol Calculated 212 mg/dL (<100); Potassium 4.1 mmol/L (3.3-5.1); Sodium 139 mmol/L (135-145); Total Protein 7.9 g/dL (6.5-8.0); Triglycerides 99 mg/dL (<150)
[2024-10-26 12:51] LABS: Prostate Specific Antigen 0.54 ng/mL (<0.05-4.0)
[2024-10-26 13:03] LABS: HBS Num1 0.88 mIU/mL (0-7.99); HBc Num1 0.08 S/CO (0.00-0.79); HBsAGNum1 0.35 S/CO (0.00-0.99); HIV AB/AG Nonreactive (Nonreactive); HIV Num 1 0.05 S/CO (0.00-0.99); Hepatitis B Core Antibody Nonreactive (Nonreactive); Hepatitis B Surface Antigen Negative (Negative); ~HepC Num1 0.13 S/CO (0.00-0.79); ~Hepatitis B Surface Antibody NONREACTIVE (Nonreactive); ~Hepatitis C Antibody Nonreactive (Nonreactive)
[2024-10-29 16:03] LABS: RPR Rapid Plasma Reagin NON-REACTIVE (NON-REACTIVE)
== END 2024-10-26 10:41 | disposition home or self-care (01) ==
LOC: HO.HHCL 10:40
PROVIDERS: Internal Medicine Cardiovascular Disease; Visit Provider Nurse Practitioner Primary Care
DX: Z00.00 Encounter for general adult medical examination without abnormal findings (principal); Z11.3 Encounter for screening for infections with a predominantly sexual mode of transmission; Z83.3 Family history of diabetes mellitus; Z12.5 Encounter for screening for malignant neoplasm of prostate; Z13.1 Encounter for screening for diabetes mellitus
CPT/HCPCS: 36415; 80053; 80061; 83036; 84153; 85025; 86592; 86704; 86706; 86803; 87340; 87389